=== PATIENT | female | born 1955 | race Caucasian/White ===

== ENCOUNTER → 2017-07-22 07:56 | Emergency (ER) | payer MEDICARE, MEDICAID ==
[~2017-07-22 07:56] MED LIST: LORazepam INJ* 2 MG/ML 1 ML VIAL IV ONE; NS 0.9% 1000 ML* 1,000 ML IV ONE; Ondansetron INJ* 2 MG/ML VIAL IV ONE
--- NOTE | 2017-07-22 09:51 | RAD ---
INDICATION: Vertigo. COMPARISON: Comparison is made with a prior CT of the brain from June 09, 2012. TECHNIQUE: Contiguous axial sections of the brain were obtained from the skull base to the vertex without contrast. FINDINGS: The ventricles, cisterns and sulci are within normal limits. No significant focal abnormality or mass effect is seen. There is no evidence for hemorrhage. There is a large area of increased density in the left maxillary sinus measuring 3.4 x 2.0 cm in size which is unchanged from the prior exam suggestive of a mucous retention cyst. The paranasal sinuses and mastoid air cells otherwise appear clear. IMPRESSION: NO EVIDENCE FOR GROSS ACUTE INFARCT, MASS EFFECT OR HEMORRHAGE.
[2017-07-22 10:13] LABS: Albumin 3.8 g/dL (3.2-5.2); BUN/Creatinine Ratio 23.8 (8-20); EGFR African American 123.1 (>60); EGFR Non-African American 95.8 (>60); Globulin 2.6 g/dL (2-4); Potassium 4.3 mmol/L (3.5-5.0); Total Bilirubin 1.4 mg/dL (0.2-1.0); Total Protein 6.4 g/dL (6.4-8.9)
[2017-07-22 10:33] LABS: Hematocrit 38 % (35-47); Hemoglobin 12.8 g/dl (12.0-16.0); Mean Corpuscular HGB Conc 34 g/dl (31-36); Mean Corpuscular Hemoglobin 31 pg (27-31); Mean Corpuscular Volume 93 fL (80-97); Mean Platelet Volume 9 um3 (7.4-10.4); Red Cell Distribution Width 14 % (10.5-15); White Blood Count 5.9 10^3/ul (3.5-10.8)
--- NOTE | 2017-07-22 14:09 | RAD ---
HISTORY: Vertigo COMPARISONS: Head CT dated July 22, 2017 TECHNIQUE: The following sequences were obtained of the head: Sagittal T1-weighted images, axial T2-weighted images, axial FLAIR images, axial susceptibility weighted images, axial T1-weighted images. Additionally, axial diffusion-weighted images were obtained with calculated apparent diffusion coefficients. FINDINGS: HEMORRHAGE/INFARCT: There is no hemorrhage or acute infarct. MASSES/SHIFT: There is no mass or shift. EXTRA-AXIAL SPACES/MENINGES: There are no extra-axial fluid collections. SULCI AND VENTRICLES: The sulci and ventricles are normal in size and position for the patient's stated age. CEREBRUM: There are no focal parenchymal abnormalities. BRAINSTEM: There are no focal parenchymal abnormalities. CEREBELLUM: There are no focal parenchymal abnormalities. The cerebellar tonsils are normal in size and position. SELLA: The sella is normal. PINEAL: The pineal region is clear. CP ANGLE/TEMPORAL BONES: The labyrinthine structures are grossly normal. VESSELS: Normal flow-voids are noted within the visualized vertebral vasculature. DIFFUSION ABNORMALITIES: There are no diffusion abnormalities. PARANASAL SINUSES/MASTOIDS: There is a mucous retention cyst of the left maxillary sinus. ORBITS: The orbits are unremarkable. BONES AND SOFT TISSUE: No bone or soft tissue abnormalities are noted. OTHER: None IMPRESSION: UNREMARKABLE MRI OF THE BRAIN. THERE IS NO RESTRICTED DIFFUSION TO SUGGEST ACUTE INFARCT.
[2017-07-22 14:50] VITALS: BP 131/56
--- NOTE | 2017-07-26 11:40 | ED ---
Thomas Costello Angela, scribed for Arnulfo Mccray MD on 07/22/17 at 0832 . Dizziness - HPI Summary HPI Summary: This pt is a 61 y/o female [place] presenting to [facility] c/o dizziness since this morning. Pt reports she woke up, sat down and immediately after getting up everything started spinning. She states associated symptoms of diarrhea, vomiting, and headache. She did not wake up with diarrhea, and it only started after she got dizzy this morning, described as "brown." Pt notes her headache is located on the frontal part of her head and is rated 5 out of 10 in severity. Pt denies weakness or numbness in LE or UE, slurred speech, chest pain , SOB. She has never felt like today before. Pt has a PMHx of HTN, high cholesterol. - History Of Current Complaint Chief Complaint: EDDizziness Stated Complaint: N,V,D Time Seen by Provider: 07/22/17 08:24 Hx Obtained From: Patient Timing: Hours Character: Room Spinning Aggravating Factor(s): Nothing Alleviating Factor(s): Nothing Associated Signs And Symptoms: Positive: Vomiting, Diarrhea, Other: - headache. Negative: Chest Pain, SOB, Palpitations, Fever, Chills, Blood In Stool, Slurred Speech - Allergies/Home Medications Allergies/Adverse Reactions: Allergies Allergy/AdvReac Type Severity Reaction Status Date / Time Diphenhydramine Allergy Hives Verified 09/17/14 22:24 Magnesium Allergy Rash And Verified 09/18/14 10:11 Itching Morphine Allergy Rash Verified 09/15/14 12:48 Penicillins Allergy Hives Verified 09/15/14 12:21 Vancomycin Allergy Rash And Verified 09/18/14 10:11 Itching Aspirin AdvReac Rash And Verified 09/15/14 12:21 Itching BEES Allergy Severe Hives Uncoded 09/15/14 12:21 Home Medications: Home Medications Metoprolol Succinate XL TAB* [Toprol XL TAB*] 50 mg PO DAILY 07/22/17 [History Confirmed 07/22/17] PMH/Surg Hx/FS Hx/Imm Hx Endocrine/Hematology History: Denies: Hx Diabetes Cardiovascular History: Reports: Hx Coronary Artery Disease - HIGH CHOLESTEROL- ON MEDICATION, Hx Hypotension, Hx Hypertension Denies: Hx Congestive Heart Failure, Hx Pacemaker/ICD Respiratory History: Reports: Hx Asthma, Hx Sleep Apnea - sleep disorder ( unspecified) History: Denies: Hx Renal Disease Musculoskeletal History: Reports: Hx Arthritis Sensory History: Denies: Hx Contacts or Glasses, Hx Hearing Aid Opthamlomology History: Denies: Hx Contacts or Glasses Neurological History: Denies: Hx Dementia, Hx Developmental Delay, Hx Headaches, Hx Migraine, Hx Nerve Disease, Hx Seizures, Hx Spinal Cord Injury, Hx Transient Ischemic Attacks (TIA), Other Neuro Impairments/Disorders Psychiatric History: Reports: Hx Anxiety, Hx Post Traumatic Stress Disorder Denies: Hx Panic Disorder - Cancer History Hx Chemotherapy: No Hx Radiation Therapy: No - Surgical History Surgery Procedure, Year, and Place: Lt KNEE -Xs 2 REPAIR-AND THEN SCREW REMOVED ; HERNIA 05/22 Hx Anesthesia Reactions: No Infectious Disease History: Reports: Hx Shingles - MANY YEARS AGO Denies: Hx Clostridium Difficile, Hx Hepatitis, Hx Human Immunodeficiency Virus (HIV), Hx of Known/Suspected MRSA, Hx Tuberculosis, Hx Known/Suspected VRE , Hx Known/Suspected VRSA, History Other Infectious Disease, Traveled Outside the [place] in Last 30 Days - Family History Known Family History: Positive: Cardiac Disease, Other - strokes - Social History Alcohol Use: None Substance Use Type: Reports: None Smoking Status (MU): Never Smoked Tobacco Have You Smoked in the Last Year: No Review of Systems Negative: Fever, Chills Eyes: Negative ENT: Negative Negative: Chest Pain Negative: Shortness Of Breath Positive: Vomiting, Diarrhea Genitourinary: Negative Musculoskeletal: Negative Skin: Negative Neurological: Other - dizziness Positive: Headache All Other Systems Reviewed And Are Negative: Yes Physical Exam Triage Information Reviewed: Yes Vital Signs On Initial Exam: Initial Vitals Temp Pulse Resp BP Pulse Ox 96.6 F 66 15 137/62 97 07/22/17 08:02 07/22/17 08:02 07/22/17 08:02 07/22/17 08:02 07/22/17 08:02 Vital Signs Reviewed: Yes Skin: Positive: Warm Head/Face: Positive: Normal Head/Face Inspection Eyes: Positive: EOMI, SHARI ENT: Positive: Normal ENT inspection, TMs normal Neck: Positive: Supple, Nontender Respiratory/Lung Sounds: Positive: Clear to Auscultation, Breath Sounds Present Cardiovascular: Positive: RRR. Negative: Murmur Abdomen Description: Positive: Nontender Musculoskeletal: Positive: Strength/ROM Intact Neurological: Positive: Sensory/Motor Intact, Alert, Oriented to Person Place, Time, CN Intact II-III, Finger to Nose - good, Speech Normal. Negative: Disoriented Psychiatric: Positive: Normal - Jeremy Coma Scale Best Eye Response: 4 - Spontaneous Best Motor Response: 6 - Obeys Commands Best Verbal Response: 5 - Oriented Diagnostics - Vital Signs Vital Signs Temp Pulse Resp BP Pulse Ox 07/22/17 08:02 96.6 F 66 15 137/62 97 - Laboratory Result Diagrams: 07/22/17 10:22 07/22/17 09:38 Lab Statement: Any lab studies that have been ordered have been reviewed, and results considered in the medical decision making process. - CT Brain CT CT Interpretation: No Acute Changes - IMPRESSION: No evidence for gross acute infarct, mass effect or hemorrhage. ED physician has reviewed this radiology report and agrees. CT Interpretation Completed By: Radiologist - EKG 0947 Cardiac Rate: NL EKG Rhythm: Sinus Rhythm EKG Interpretation: No STEMI - Additional Comments Diagnostic Additional Comments: BRAIN MRI IMPRESSION: unremarkable MRI of the brain. There is no restricted diffusion to suggest acute infarct. ED physician has reviewed this radiology report and agrees. Re-Evaluation - Re-Evaluation First Eval Re-Evaluation Time: 12:31 Change: Improved Comment: the patient feels much better after hydration and ativan. Dizzy Course/Dx - Course Assessment/Plan: Pt is a 61 y/o female presenting to [facility] c/o dizziness since this morning with associated diarrhea, vomiting, and headache. In the ED course , pt was given IV fluids, Ativan, and Zofran. Brain CT shows no evidence for gross acute infarct, mass effect or hemorrhage. - Diagnoses Provider Diagnoses: Vertigo Discharge - Discharge Plan Condition: Good Disposition: HOME Patient Education Materials: Vertigo (ED) Referrals: Adin Vuong MD [Primary Care Provider] - The documentation as recorded by the Thomas espana Angela accurately reflects the service I personally performed and the decisions made by me, Arnulfo Mccray MD.
== END | disposition home or self-care (01) ==
LOC: ED 07:56
DX: R42 Dizziness and giddiness (principal); I25.10 Atherosclerotic heart disease of native coronary artery without angina pectoris; E78.00 Pure hypercholesterolemia, unspecified; I10 Essential (primary) hypertension; J45.909 Unspecified asthma, uncomplicated; M19.90 Unspecified osteoarthritis, unspecified site
CPT/HCPCS: 36415; 70450; 70551; 80053; 83735; 84484; 85025; 93005; 96360; 96361; 96374; 96375; 99283; J2060; J2405